=== PATIENT | female | born 1950 | race Caucasian/White ===

== ENCOUNTER 2023-01-09 07:56 | Outpatient (CLI) | payer OTHER ==
[~2023-01-09 07:56] MED LIST: ASA325 MG PO; CATAFLAM50 MG PO; CEFADROXIL500 MG PO; COZAAR100 MG PO; LEVAQUIN750 MG PO; PERCOCET 5/321 UDTAB PO; PERCOCET 5/3251 TAB PO; PRILOSEC20 MG PO; XARELTO10 MG PO; ZOCOR20 MG PO
== END 2023-01-09 08:33 | disposition home or self-care (01) ==
LOC: NUCLEAR 07:56
DX: C52 Malignant neoplasm of vagina (principal); R10.2 Pelvic and perineal pain
CPT/HCPCS: 78815; A9552

== ENCOUNTER 2023-08-18 08:18 | Outpatient (CLI) | payer OTHER | END 2023-08-18 08:21 | disposition home or self-care (01) | LOC: NUCLEAR 08:18 | DX: C52 Malignant neoplasm of vagina (principal) | CPT/HCPCS: 78816; A9552 ==

== ENCOUNTER 2024-07-09 08:12 | Outpatient (CLI) | payer OTHER | END 2024-07-09 08:13 | disposition home or self-care (01) | LOC: NUCLEAR 08:12 | PROVIDERS: ATTEND Ophthalmology | DX: C52 Malignant neoplasm of vagina (principal) | CPT/HCPCS: 78815; A9552 ==